=== PATIENT | female | born 1990 | race Caucasian/White ===

== ENCOUNTER → 2020-02-12 09:19 | Outpatient (CLI) | payer BC, SELFPAY ==
--- NOTE | 2020-02-12 09:21 | DI.RAD.S_ITS ---
PROCEDURE: XR WRIST RT MIN 3V INDICATIONS: R wrist pain, FOOSH TECHNIQUE: 4 views of the wrist were acquired. COMPARISON: None. FINDINGS: Bones: Nondisplaced subtle distal radius fracture, possibly extending to articular surface. Old ulnar styloid fracture. No suspicious bony lesions. Scaphoid view: Scaphoid intact Soft tissues: No suspicious soft tissue calcifications. IMPRESSION: Nondisplaced distal radius fracture possibly extending to articular surface. Dictated by: Dat Arriola M.D. on 02/12/2020 at 8:46 Approved by: Dat Arriola M.D. on 02/12/2020 at 8:47
== END ==
PROVIDERS: Referring Provider Nurse Practitioner; Visit Provider Nurse Practitioner
DX: M25.531 Pain in right wrist (principal); S52.501A Unspecified fracture of the lower end of right radius, initial encounter for closed fracture; X58.XXXA Exposure to other specified factors, initial encounter
CPT/HCPCS: 73110